=== PATIENT | female | born 2000 | race Caucasian/White ===

== ENCOUNTER 2022-05-20 16:15 | Observation (INO) | payer MEDICAID ==
[~2022-05-20] VITALS: Ht 157.5 cm; Wt 89.4 kg
[2022-05-20] MEDS ORDERED: PNV91TAB8 PO (16:39)
[2022-05-20] MEDS ORDERED: BETAMETH ACET/BETAMETH NA PH 30 MG/5 ML VIAL IM SCH (16:52)
[2022-05-20 17:21] VITALS: BP 110/69
[2022-05-20] MEDS: LACTATED RINGERS 1,000 ML IV SCH ×2 (17:40→20:30)
[2022-05-20 20:14] LABS: APPEARANCE,URINE CLEAR (CLEAR); BILIRUBIN,URINE NEGATIVE (NEGATIVE); BLOOD, URINE NEGATIVE (NEGATIVE); COLOR,URINE YELLOW (YELLOW); LEUKOCYTE ESTERASE ,URINE NEGATIVE (NEGATIVE); NITRITE, URINE NEGATIVE (NEGATIVE); PH,URINE 6.5 (5.0-9.0); UGLUCOSE NEGATIVE (NEGATIVE)
== END 2022-05-20 21:20 | disposition home or self-care (01) ==
LOC: MLD 16:15
PROVIDERS: ADMIT Obstetrics & Gynecology; ATTEND Obstetrics & Gynecology
DX: O60.03 Preterm labor without delivery, third trimester (principal); Z20.822 Contact with and (suspected) exposure to COVID-19; O99.283 Endocrine, nutritional and metabolic diseases complicating pregnancy, third trimester; E86.0 Dehydration; Z3A.28 28 weeks gestation of pregnancy
CPT/HCPCS: 36415; 59025; 76805; 76817; 81003; 82731; 87426; 96360; 96361; 96372; G0378; G0379; J0702; Q0092

== ENCOUNTER 2022-05-21 16:55 | Observation (INO) | payer MEDICAID, OTHER ==
[~2022-05-21] VITALS: Ht 157.5 cm; Wt 89.4 kg
[~2022-05-21 16:55] MED LIST: PNV91TAB8 PO
[2022-05-21] MEDS ORDERED: BETAMETH ACET/BETAMETH NA PH 30 MG/5 ML VIAL IM ONE (17:14)
[2022-05-21] MEDS ORDERED: BETAMETH ACET/BETAMETH NA PH 30 MG/5 ML VIAL IM SCH (17:30)
[2022-05-21 17:39] VITALS: BP 118/64
== END 2022-05-21 18:35 | disposition home or self-care (01) ==
LOC: MLD 16:55
PROVIDERS: ADMIT Obstetrics & Gynecology; ATTEND Obstetrics & Gynecology
DX: O62.9 Abnormality of forces of labor, unspecified (principal); Z3A.30 30 weeks gestation of pregnancy
CPT/HCPCS: 96372; G0378; G0379; J0702

== ENCOUNTER 2022-05-27 23:00 | Observation (INO) | payer MEDICAID ==
[~2022-05-27] VITALS: Ht 157.5 cm; Wt 91.2 kg
[2022-05-27 23:35] VITALS: BP 117/71
[2022-05-28] MEDS ORDERED: ACETAMINOPHEN 325 MG TAB ONE (00:24)
[2022-05-28] MEDS ORDERED: ACETAMINOPHEN 325 MG TAB PO SCH (00:25)
== END 2022-05-28 00:45 | disposition home or self-care (01) ==
LOC: MLD 23:00
PROVIDERS: ADMIT Obstetrics & Gynecology; ATTEND Obstetrics & Gynecology
DX: O26.893 Other specified pregnancy related conditions, third trimester (principal); R10.9 Unspecified abdominal pain; Z3A.29 29 weeks gestation of pregnancy; Z87.51 Personal history of pre-term labor
CPT/HCPCS: 59025; 81000; G0378

== ENCOUNTER 2022-06-22 11:10 | Inpatient (IN) | payer MEDICAID ==
[~2022-06-22] VITALS: Ht 157.5 cm; Wt 93.0 kg
[2022-06-22] MEDS ORDERED: ONDANSETRON 4 MG/2 ML VIAL IVP PRN (11:55)
[2022-06-22] MEDS ORDERED: MORPHINE SULFATE 5 MG/ML VIAL IVP PRN (11:55)
[2022-06-22] MEDS: LACTATED RINGERS 1,000 ML IV SCH ×2 (12:51→16:42)
[2022-06-22 12:54] LABS: BASOPHILS # (AUTO) 0.1 K/uL (0.00-0.22); BASOPHILS % (AUTO) 0.5 % (0.0-2.0); EOSINOPHILS % (AUTO) 0.4 % (0.0-4.0); HEMATOCRIT 32.5 % (36-48); HEMOGLOBIN 10.7 g/dL (12.0-16.0); LYMPHOCYTES # (AUTO) 2.6 K/uL (2.5-16.5); MEAN CORPUSCULAR HEMOGLOBIN 27 pg (27-31); MEAN CORPUSCULAR HGB CONC 33 g/dL (33-37); MEAN CORPUSCULAR VOLUME 82.3 fL (80-94); MONOCYTES # (AUTO) 0.8 K/uL (0.8-1.0); MONOCYTES % (AUTO) 7.3 % (1.7-9.3); NEUTROPHILS # (AUTO) 7.7 K/uL (1.8-7.7); NEUTROPHILS % (AUTO) 68.8 % (42.2-75.2); PLATELET COUNT (AUTO) 222 K/uL (140-450); RED BLOOD CELL COUNT(AUTO) 3.95 MIL/uL (4.20-5.40); RED CELL DISTRIBUTION WIDTH 13.1 % (11.6-13.7); WHITE BLOOD COUNT (AUTO) 11.2 K/uL (4.5-11.0)
[2022-06-22 13:05] LABS: APPEARANCE,URINE CLEAR (CLEAR); BILIRUBIN,URINE NEGATIVE (NEGATIVE); BLOOD, URINE NEGATIVE (NEGATIVE); COLOR,URINE YELLOW (YELLOW); LEUKOCYTE ESTERASE ,URINE NEGATIVE (NEGATIVE); NITRITE, URINE NEGATIVE (NEGATIVE); UGLUCOSE NEGATIVE (NEGATIVE)
[2022-06-22 13:24] LABS: ALBUMIN 2.6 g/dL (3.4-5.0); ANION GAP 11.9 (8-16); CARBON DIOXIDE 23.7 mmol/L (21-32); CREATININE 0.5 mg/dL (0.6-1.3); POTASSIUM 3.6 mmol/L (3.5-5.1); TOTAL BILIRUBIN 0.4 mg/dL (0.0-1.0)
[2022-06-22 14:33] VITALS: BP 118/67
[2022-06-22] MEDS: PANTOPRAZOLE 40 MG INJ VIAL IVP SCH (16:51)
[2022-06-22] MEDS ORDERED: ACETAMINOPHEN 325 MG TAB PO PRN (16:55)
[2022-06-22] MEDS ORDERED: NIFEdipine 10 MG CAPLF PO SCH (19:15)
[2022-06-23] MEDS: LACTATED RINGERS 1,000 ML IV SCH ×2 (00:50→22:00)
[2022-06-23] MEDS: NIFEdipine 10 MG CAPLF PO SCH ×4 (01:43→21:58)
--- NOTE | 2022-06-23 09:06 | NUR ---
PATIENT HAS BEEN SCREENED AND CATEGORIZED LOW NUTRITION RISK. PATIENT WILL BE SEEN WITHIN 7 DAYS OF ADMISSION. 06/30/22 REVIEWED BY ALEX JOHNSON RD
[2022-06-23] MEDS: PANTOPRAZOLE 40 MG INJ VIAL IVP SCH (09:18)
[2022-06-24] MEDS: NIFEdipine 10 MG CAPLF PO SCH ×3 (04:03→15:51)
[2022-06-24] MEDS: LACTATED RINGERS 1,000 ML IV SCH (12:23)
== END 2022-06-24 20:22 | disposition home or self-care (01) | DRG 566 ==
LOC: MLD 11:10 → MFCC 16:04 → OBSVTOIN 06-23 00:01
PROVIDERS: ADMIT Obstetrics & Gynecology; ATTEND Obstetrics & Gynecology
DX: O26.893 Other specified pregnancy related conditions, third trimester (principal); R10.9 Unspecified abdominal pain; Z3A.33 33 weeks gestation of pregnancy; Z20.822 Contact with and (suspected) exposure to COVID-19
CPT/HCPCS: G0378 ×13; 36415; 76819; 80053; 81003; 85025; 86886; 86900; 86901; C9113; Q0092

== ENCOUNTER 2022-06-27 00:13 | Observation (INO) | payer MEDICAID ==
[~2022-06-27] VITALS: Ht 165.1 cm; Wt 90.7 kg
[2022-06-27 00:47] VITALS: BP 115/67
[2022-06-27] MEDS ORDERED: LACTATED RINGERS 1,000 ML IV SCH (01:00)
[2022-06-27] MEDS ORDERED: LACTATED RINGERS 1,000 ML IV ONE (01:00)
[2022-06-27] MEDS ORDERED: MORPHINE SULFATE 4 MG/ML SYR IVP PRN (01:00)
[2022-06-27] MEDS ORDERED: ACETAMINOPHEN 325 MG TAB PO PRN (01:15)
[2022-06-27] MEDS ORDERED: ACETAMINOPHEN 325 MG TAB ONE (01:17)
== END 2022-06-27 03:00 | disposition home or self-care (01) ==
LOC: MLD 00:13
PROVIDERS: ADMIT Obstetrics & Gynecology; ATTEND Obstetrics & Gynecology
DX: O26.893 Other specified pregnancy related conditions, third trimester (principal); R10.30 Lower abdominal pain, unspecified; Z3A.34 34 weeks gestation of pregnancy
CPT/HCPCS: 96360; 96361; G0378

== ENCOUNTER 2023-10-21 17:31 | Emergency (ER) | payer MEDICAID ==
[~2023-10-21] VITALS: Ht 157.5 cm; Wt 91.2 kg
[2023-10-21 17:55] VITALS: BP 111/71; PULSE 104; RESP 18; TEMP 97.9; O2SAT 98
[2023-10-21 18:55] LABS: BASOPHILS % (AUTO) 0.3 % (0.0-2.0); EOSINOPHILS # (AUTO) 0.1 K/uL (0-0.4); EOSINOPHILS % (AUTO) 0.8 % (0.0-4.0); HEMATOCRIT 36.1 % (36-48); HEMOGLOBIN 11.7 g/dL (12.0-16.0); LYMPHOCYTES # (AUTO) 2.5 K/uL (2.5-16.5); LYMPHOCYTES % (AUTO) 25.5 % (20.5-51.1); MEAN CORPUSCULAR HEMOGLOBIN 25 pg (27-31); MEAN CORPUSCULAR HGB CONC 32 g/dL (33-37); MEAN CORPUSCULAR VOLUME 77.9 fL (80-94); MONOCYTES # (AUTO) 0.7 K/uL (0.8-1.0); MONOCYTES % (AUTO) 7.1 % (1.7-9.3); NEUTROPHILS # (AUTO) 6.5 K/uL (1.8-7.7); NEUTROPHILS % (AUTO) 66.3 % (42.2-75.2); PLATELET COUNT (AUTO) 334 K/uL (140-450); RED BLOOD CELL COUNT(AUTO) 4.63 MIL/uL (4.20-5.40); RED CELL DISTRIBUTION WIDTH 15.4 % (11.6-13.7); WHITE BLOOD COUNT (AUTO) 9.8 K/uL (4.8-10.8)
[2023-10-21 18:59] LABS: APPEARANCE,URINE CLEAR (CLEAR); BILIRUBIN,URINE NEGATIVE (NEGATIVE); BLOOD, URINE NEGATIVE (NEGATIVE); COLOR,URINE YELLOW (YELLOW); LEUKOCYTE ESTERASE ,URINE NEGATIVE (NEGATIVE); NITRITE, URINE NEGATIVE (NEGATIVE); PH,URINE 6.5 (5.0-9.0); PROTEIN,URINE NEGATIVE (NEGATIVE); UGLUCOSE NEGATIVE (NEGATIVE); UROBILINOGEN,URINE 0.2 EU/dL (0.2 - 1)
[2023-10-21 19:04] LABS: ANION GAP 12.8 (8-16); CALCIUM 9.1 mg/dL (8.5-10.1); CARBON DIOXIDE 27.2 mmol/L (21-32); CREATININE 0.5 mg/dL (0.6-1.3)
[2023-10-21 20:11] VITALS: BP 111/71; PULSE 104; RESP 18; TEMP 97.9; O2SAT 98
== END 2023-10-21 20:11 | disposition home or self-care (01) ==
LOC: MED 17:31
DX: O20.0 Threatened abortion (principal); Z3A.08 8 weeks gestation of pregnancy; Z79.899 Other long term (current) drug therapy; Z91.013 Allergy to seafood; Z88.0 Allergy status to penicillin
CPT/HCPCS: 36415; 76801; 80048; 81003; 84702; 85025; 86900; 86901; 99284; Q0092